=== PATIENT | male | born 1945 | race Caucasian/White ===

== ENCOUNTER 2024-04-27 10:26 | Day surgery (SDC) | payer MEDICARE, BC ==
[2024-04-23 12:47] LABS: BASOPHILS % (AUTO) 0.4 % (0-1); EOSINOPHILS # (AUTO) 0.1 X10'3 (0-0.9); EOSINOPHILS % (AUTO) 1.4 % (0-6); HEMATOCRIT 45.2 % (42.0-52.0); HEMOGLOBIN 14.8 g/dl (14.0-17.9); LYMPHOCYTES # (AUTO) 1.8 X10'3 (1.1-4.8); MEAN CORPUSCULAR HEMOGLOBIN 30.2 PG (27.0-31.0); MEAN CORPUSCULAR HGB CONC 32.8 g/dL (33.0-36.5); MEAN PLATELET VOLUME 9.7 FL (7.4-10.4); MONOCYTES # (AUTO) 0.6 X10'3 (0-0.9); MONOCYTES % (AUTO) 7.8 % (2-12); NEUTROPHILS # (AUTO) 5.2 X10'3 (1.8-7.7); NEUTROPHILS % (AUTO) 67.4 % (42-75); PLATELET COUNT 179 X10'3 (140-440); RED BLOOD COUNT 4.91 X10'6 (4.70-6.10); RED CELL DISTRIBUTION WIDTH 16.4 % (11.5-14.5); WHITE BLOOD COUNT 7.7 X10'3 (4.5-11.0)
[2024-04-23 12:55] LABS: ALBUMIN 3.5 G/DL (3.4-5.0); ANION GAP 10 (8-16); BLOOD UREA NITROGEN 12 MG/DL (7-18); BUN/CREATININE RATIO 11.2 (10.0-20.0); CALCIUM 8.7 MG/DL (8.5-10.1); CHLORIDE 106 MMOL/L (99-107); CREATININE 1.07 MG/DL (0.60-1.10); GLUCOSE 162 MG/DL (70-104); POTASSIUM 3.8 MMOL/L (3.5-5.1); SODIUM 141 MMOL/L (135-145); TOTAL CARBON DIOXIDE 25.1 MMOL/L (24-32); eGFR 67 ML/MIN
[2024-04-23 12:59] LABS: APTT 29 SECONDS (22-32); INR 1.1 INR; PROTHROMBIN TIME 11.7 SECONDS (9.0-12.0)
[2024-04-27] VITALS (11 sets, daily range): BP systolic 145–182; BP diastolic 70–124; PULSE 57–81; RESP 10–12; TEMP 98.2; O2SAT 98–100
[~2024-04-27] VITALS: Ht 172.7 cm; Wt 90.7 kg
[2024-04-27] MEDS ORDERED: ROSU5TAB43 PO (11:33)
[2024-04-27] MEDS ORDERED: OMEP40CA21 PO (11:33)
[2024-04-27] MEDS ORDERED: OLME40TA18 PO (11:33)
[2024-04-27] MEDS ORDERED: METF-438 PO (11:33)
[2024-04-27] MEDS ORDERED: SITA100T11 PO (11:33)
[2024-04-27] MEDS ORDERED: SOTA80TA73 PO (11:33)
[2024-04-27] MEDS ORDERED: APIX5TAB3 PO (11:33)
[2024-04-27 11:43] LABS: CHOL/HDL RATIO 2.7 (0.00-4.99); CHOLESTEROL 136 MG/DL (0-200); HDL CHOLESTEROL 50 MG/DL (35-60); LDL CHOLESTEROL 65 MG/DL (50-100); TRIGLYCERIDES 155 MG/DL (20-135)
[2024-04-27] MEDS: normal saline 1000ml 1,000 ML IV SCH (13:19)
[2024-04-27] MEDS: fentaNYL/PF 50MCG/1 ML 2ML syringe IV ONE (13:19)
[2024-04-27] MEDS: MIDAZolam 1mg/ml 10ml vial IV ONE (13:19)
== END 2024-04-27 15:00 | disposition home or self-care (01) ==
LOC: SSTAY O 10:26
PROVIDERS: ATTEND Internal Medicine Interventional Cardiology
DX: I48.91 Unspecified atrial fibrillation (principal); R94.31 Abnormal electrocardiogram [ECG] [EKG]; I49.1 Atrial premature depolarization; I10 Essential (primary) hypertension; E11.9 Type 2 diabetes mellitus without complications; E78.00 Pure hypercholesterolemia, unspecified; G47.33 Obstructive sleep apnea (adult) (pediatric); Z79.01 Long term (current) use of anticoagulants; Z79.84 Long term (current) use of oral hypoglycemic drugs; Z79.899 Other long term (current) drug therapy; Z82.49 Family history of ischemic heart disease and other diseases of the circulatory system; Z83.3 Family history of diabetes mellitus
CPT/HCPCS: 36415; 80048; 80061; 82948; 85025; 85610; 85730; 92960; 93005; J2250; J3010; J7030